=== PATIENT | male | born 2000 | race Asian ===

== ENCOUNTER 2023-12-02 18:13 | Emergency (ER) | payer MEDICAID ==
[~2023-12-02] VITALS: Ht 175.3 cm; Wt 65.8 kg
[2023-12-02 18:18] VITALS: BP_SYST 135; PULSE 83; RESP 16; TEMP 98.4; O2SAT 96
[2023-12-02 23:21] VITALS: BP_SYST 125; PULSE 73; RESP 15; TEMP 98; O2SAT 96
== END 2023-12-02 23:21 | disposition home or self-care (01) ==
LOC: SED 18:13
DX: R07.89 Other chest pain (principal); R07.81 Pleurodynia
CPT/HCPCS: 71045; 71100; 71250-TC; 99284